=== PATIENT | male | born 1990 | race Caucasian/White ===

== ENCOUNTER 2020-12-28 05:41 | Emergency (ER) | payer SELFPAY ==
[2020-12-28 05:58] VITALS: BP 155/102; PULSE 64
[2020-12-28] MEDS ORDERED: Famotidine 40 MG/5 ML Bottle PO ONE (06:18)
[2020-12-28] MEDS ORDERED: diphenhydrAMINE 25 MG Cap PO ONE (06:19)
--- NOTE | 2020-12-28 06:21 | EDM.PDOC ---
ED HPI GENERAL MEDICAL PROBLEM - General Chief Complaint: Allergic Reaction Stated Complaint: BEE STING USED EPI PEN ALREADY Time Seen by Provider: 12/28/20 06:13 - History of Present Illness INITIAL COMMENTS - FREE TEXT/NARRATIVE: 30-year-old male presents the emergency room after having a bee sting to his left ear. Yesterday afternoon patient was stung by bee in the left ear. He already used his EpiPen he is this almost immediately after the bee sting. He was not having any breathing difficulties or shortness of breath. His ear has swollen up and has not improved. The patient has not tried anything to help improve. Patient states he used Benadryl when he got stung in the neck about 10 years ago and it did not seem to help. The swelling in his ear has not improved. Left Ear Pain Score (Numeric/FACES): 9 - Related Data Allergies Allergy/AdvReac Type Severity Reaction Status Date / Time bee venom protein (honey bee) Allergy Facial Verified 12/28/20 05:59 Swelling Home Meds: Home Meds EPINEPHrine [Epipen 2-Asge] 0.3 mg IJ ASDIRECTED PRN #1 auto.injct 12/28/20 [Rx] EPINEPHrine [Epipen] 1 dose IM ASDIRECTED PRN 12/28/20 [History] Past Medical History - Past Health History Medical/Surgical History: Denies Medical/Surgical History - Infectious Disease History Infectious Disease History: Reports: None Social & Family History - Tobacco Use Tobacco Use Status *Q: Never Tobacco User Second Hand Smoke Exposure: No - Caffeine Use Caffeine Use: Reports: Coffee, Energy Drinks - Recreational Drug Use Recreational Drug Use: No ED ROS ALLERGIC REACTION - Review of Systems Review Of Systems: See Below Constitutional: Reports: No Symptoms HEENT: Reports: Ear Pain Respiratory: Reports: No Symptoms Cardiovascular: Reports: No Symptoms GI/Abdominal: Reports: No Symptoms Neurological: Reports: No Symptoms ED EXAM GENERAL NO PERIP PULSE - Physical Exam Exam: See Below Exam Limited By: No Limitations General Appearance: Alert, No Apparent Distress Ears: Normal External Exam (On the right), Normal Canal, Normal TMs, Other (Left external ear is quite swollen) Nose: Normal Inspection, Normal Mucosa, No Blood Throat/Mouth: Normal Inspection, Normal Lips, Normal Teeth, Normal Gums, Normal Oropharynx, Normal Voice, No Airway Compromise Neck: Normal Inspection, Supple, Non-Tender, Full Range of Motion. No: Lymphadenopathy (L), Lymphadenopathy (R) Respiratory/Chest: No Respiratory Distress, Lungs Clear, Normal Breath Sounds Cardiovascular: Regular Rate, Rhythm, No Edema, No Murmur Course - Vital Signs Last Recorded V/S: Last Vital Signs Temp 37.0 C 12/28/20 05:54 Pulse 64 12/28/20 05:54 Resp 20 12/28/20 05:54 BP 155/102 H 12/28/20 05:54 Pulse Ox 100 12/28/20 05:54 - Orders/Labs/Meds Meds: Medications Discontinued Medications Generic Name Dose Route Start Last Admin Trade Name Abdias PRN Reason Stop Dose Admin Diphenhydramine HCl 25 mg 12/28/20 06:19 12/28/20 06:39 Diphenhydramine 25 Mg Cap PO 12/28/20 06:20 25 mg ONETIME ONE Administration Famotidine Confirm 12/28/20 06:31 Famotidine 20 Mg Tab Administered 12/28/20 06:32 Dose 20 mg .ROUTE .STK-MED ONE Famotidine 20 mg 12/28/20 06:37 12/28/20 06:39 Famotidine 20 Mg Tab PO 12/28/20 06:38 20 mg ONETIME ONE Administration - Re-Assessments/Exams Free Text/Narrative Re-Assessment/Exam: 12/28/20 07:02 Patient will try famotidine and Benadryl. I will refill his EpiPen albeit it does not sound like he had an anaphylactic type reaction. Departure - Departure Time of Disposition: 07:02 Disposition: Home, Self-Care 01 Clinical Impression: Bee sting reaction - Discharge Information Referrals: PCP,None [Primary Care Provider] - Forms: ED Department Discharge Additional Instructions: Return to the emergency room with any questions problems or worsening symptoms. What you are experiencing is localized reaction to a bee sting. This should respond to famotidine and Benadryl. 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 Take 1 twice daily for 5 days then 1 daily thereafter. I sent a refill for your EpiPen, a 2 pack. To the [place] pharmacy in the [facility] [employer] [facility]. Follow-up in the hospital clinic on Friday for recheck. [phone] Sepsis Event Note (ED) - Focused Exam Vital Signs: Vital Signs Temp Pulse Resp BP Pulse Ox 12/28/20 05:54 37.0 C 64 20 155/102 H 100
[2020-12-28] MEDS ORDERED: Famotidine 20 MG Tab ONE (06:31)
[2020-12-28] MEDS ORDERED: Famotidine 20 MG Tab PO ONE (06:37)
== END 2020-12-28 07:30 | disposition home or self-care (01) ==
LOC: JD.ED 05:41
DX: T63.441A Toxic effect of venom of bees, accidental (unintentional), initial encounter (principal); Z91.030 Bee allergy status
CPT/HCPCS: 99282; A9270; 99283

== ENCOUNTER 2025-02-04 10:50 | Emergency (ER) | payer BC ==
[2025-02-04] MEDS: methylPREDNISolone Sodium Succinate 125 MG/2 ML SDV IVPUSH ONE (11:13)
[2025-02-04] MEDS: diphenhydrAMINE 50 MG/ML SDV IVPUSH ONE (11:20)
[2025-02-04] MEDS: Sodium Chloride 0.9% 10 ML Syringe FLUSH PRN (11:45)
[2025-02-04 14:05] VITALS: BP 132/84; PULSE 61
== END 2025-02-04 12:55 | disposition home or self-care (01) ==
LOC: JD.ED 10:50
DX: T63.461A Toxic effect of venom of wasps, accidental (unintentional), initial encounter (principal); Z91.030 Bee allergy status; Z79.899 Other long term (current) drug therapy
CPT/HCPCS: 96374; 96375; 99283; J1308; J2919